=== PATIENT | female | born 1950 | race Caucasian/White ===

== ENCOUNTER → 2016-09-16 | Outpatient (CLI) | payer BC | LOC: MOB LAB 12:31 | PROVIDERS: ATTEND Physician Assistant | DX: N39.0 Urinary tract infection, site not specified (principal) | CPT/HCPCS: 87077; 87088; 87186 ==

== ENCOUNTER → 2017-01-30 | Outpatient (CLI) | payer BC ==
--- NOTE | 2017-01-30 14:02 | DI ---
LEFT FOOT, 01/30/2017 11:33 AM: Clinical History: Left foot pain. Previous Exam: None at this facility. 3 weightbearing views are submitted. There is no acute soft tissue, osseous, or joint abnormality. 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 Reading: Bunion of the fifth metatarsal bone. Arthritic changes of the first metatarsophalangeal joint with a hallux varus deformity.
== END ==
LOC: MOB RAD 11:34
PROVIDERS: ATTEND Podiatrist Foot & Ankle Surgery
DX: M79.672 Pain in left foot (principal); M21.612 Bunion of left foot; M20.32 Hallux varus (acquired), left foot; M19.072 Primary osteoarthritis, left ankle and foot
CPT/HCPCS: 73630

== ENCOUNTER → 2017-04-24 | Outpatient (CLI) | payer BC ==
[2017-04-24 10:40] LABS: HEMATOCRIT 44.7 % (37.0-47.0); HEMOGLOBIN 14.7 g/dL (12.0-16.0); MEAN CORPUSCULAR HEMOGLOBIN 32.7 PG (27-31); MEAN CORPUSCULAR HGB CONC 32.9 g/dL (33-37); MEAN CORPUSCULAR VOLUME 99.3 FL (81-99); MEAN PLATELET VOLUME 9.8 FL (7.4-12.2); RED BLOOD COUNT 4.5 10^6/uL (4.20-5.40)
[2017-04-24 11:02] LABS: CALCIUM 9.6 mg/dL (8.7-10.7); CHOL/HDL RATIO 4.95 RATIO (0-4.0); SERUM ALBUMIN 4.3 g/dL (3.5-4.8)
== END ==
LOC: LAB 10:28
PROVIDERS: ATTEND Internal Medicine
DX: E03.9 Hypothyroidism, unspecified (principal); I48.91 Unspecified atrial fibrillation; E78.00 Pure hypercholesterolemia, unspecified
CPT/HCPCS: 36415; 80053; 80061; 84443; 85027